=== PATIENT | male | born 1965 | race Caucasian/White ===

== ENCOUNTER 2017-11-02 16:33 | Emergency (ER) | payer OTHER ==
[~2017-11-02] VITALS: Ht 182.9 cm; Wt 90.0 kg
[2017-11-02] MEDS ORDERED: ESCI20TA36 PO (17:01)
[2017-11-02] MEDS ORDERED: CYCLOBENZAPRINE 10MG TABLET PO ONE (20:00)
[2017-11-02] MEDS ORDERED: KETOROLAC 60MG/2ML VIAL IM ONE (20:00)
[2017-11-02 22:30] VITALS: BP 122/58
== END 2017-11-02 23:06 | disposition home or self-care (01) ==
LOC: ER 18:06
DX: M54.5 Low back pain (principal); F41.9 Anxiety disorder, unspecified
CPT/HCPCS: 72100; 96372; 99284; J1885